=== PATIENT | female | born 1980 | race Caucasian/White ===

== ENCOUNTER 2017-11-15 01:06 | Emergency (ER) | payer OTHER ==
[~2017-11-15] VITALS: Ht 162.6 cm; Wt 74.3 kg
[~2017-11-15 01:06] MED LIST: CLEOCIN150 MG PO; DELTASONE20 M1 PO; ENDOCET 5-3251 EACH PO; IBUPROFEN800 MG PO; MOTRIN800 MG PO; NORCO 5/3251 TABLET PO; PRENATAL TABLE1 EAC3 PO; ZANTAC150 MG PO; ZYRTEC10 M2 PO
[2017-11-15 01:48] LABS: HEMATOCRIT 41.9 % (36.0-46.0); MCH 30.3 PG (29.0-34.0); MCHC 33.7 G/DL (30.0-36.0); MCV 89.9 FL (83-99); MEAN PLAT.VOLUME 8.8 uM^3 (9.5-12.4); PLATELET COUNT 288 K/uL (156-360); RBC DIS.WIDTH-CV 11.9 % (11.8-14.6); RBC DIS.WIDTH-SD 38.9 % (39-53); RED BLOOD COUNT 4.66 M/uL (3.80-5.20); WHITE BLOOD COUNT 15.4 K/uL (4.1-10.2)
[2017-11-15 02:01] LABS: CHLORIDE 108 mEq/L (99-109); POTASSIUM 3.8 mEq/L (3.7-5.4); SODIUM 140 mEq/L (136-147)
[2017-11-15 02:02] LABS: GLUCOSE 109 mg/dL (70-99)
[2017-11-15 02:04] LABS: ANION GAP 9 MEQ/L (2-14)
[2017-11-15 02:06] LABS: GFR ESTIMATE (CALCULATED) > 59 mL/min/
[2017-11-15 02:07] LABS: UREA NITROGEN (BUN) 9 mg/dL (9-23)
[2017-11-15 02:16] LABS: TROP-I INTERPRETATION NEGATIVE; TROPONIN-I < 0.01 ng/mL (0.0-0.30)
[2017-11-15 03:43] LABS: D-DIMER ELISA < 150.00 ng/mLDDU (<230)
[2017-11-15 03:46] LABS: QUANTITATIVE HCG < 4.0 MIU/ML
[2017-11-15] MEDS ORDERED: PROAIR HFA8.5 GM IH (04:30)
[2017-11-15] MEDS ORDERED: ROBITUSSIN100 MG/5 M PO (04:30)
[2017-11-15 04:59] VITALS: BP 137/87
== END 2017-11-15 05:00 | disposition home or self-care (01) ==
LOC: EME 01:06
DX: R06.02 Shortness of breath (principal); R07.89 Other chest pain; J45.990 Exercise induced bronchospasm; Z77.22 Contact with and (suspected) exposure to environmental tobacco smoke (acute) (chronic); Z88.2 Allergy status to sulfonamides; Z88.0 Allergy status to penicillin; I10 Essential (primary) hypertension
CPT/HCPCS: 71020; 80048; 84484; 84702; 85027; 85379; 93005; 94640; 99281; 99284